=== PATIENT | male | born 1980 ===

== ENCOUNTER 2021-04-15 19:42 | Emergency (ER) | payer SELFPAY ==
[~2021-04-15] VITALS: Ht 167 cm; Wt 81.0 kg
[2021-04-15] MEDS ORDERED: TETANUS,DIPTH,PERTUSS P/F (BOOSTRIX) 0.5 ML VIAL IM ONE (20:00)
[2021-04-15] MEDS ORDERED: CEPHALEXIN 250 MG (KEFLEX) CAP PO SCH (20:00)
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
[2021-04-15] MEDS ORDERED: ACHD5005 PO (20:03)
[2021-04-15] MEDS ORDERED: CEPH500T PO (20:03)
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
[2021-04-15 20:44] VITALS: BP 150/65
== END 2021-04-15 20:44 | disposition home or self-care (01) ==
LOC: ER 19:48
DX: S61.032A Puncture wound without foreign body of left thumb without damage to nail, initial encounter (principal); Z23 Encounter for immunization; W32.0XXA Accidental handgun discharge, initial encounter
CPT/HCPCS: 73130; 90715